=== PATIENT | female | born 1940 | race Caucasian/White ===

== ENCOUNTER 2022-06-05 10:23 | Inpatient (IN) | payer MEDICARE, OTHER ==
[2022-06-05 11:21] LABS: #Eosinphils 0.3 thou/uL (0.0-0.7); #Lymphocytes 1.1 thou/uL (1.20-3.40); #Monocytes 0.8 thou/uL (0.11-0.59); #Neutrophils 5.4 thou/uL (1.40-6.50); %Basophils 0.5 % (0.0-1.0); %Eosinophils 3.7 % (0.0-10.0); %Lymphocytes 14.5 % (21.0-51.0); %Neutrophils 71.4 % (42.0-75.0); Hemoglobin 10.9 g/dL (12.0-16.0); Mean Corpuscular HGB CONC 32.3 g/dL (32.0-36.0); Mean Corpuscular Hemoglobin 29.4 pg (27.0-31.0); Mean Corpuscular Volume 90.9 fL (78.0-98.0); Mean Platelet Volume 8.5 fL (7.4-10.4); Platelet Count 209 thou/uL (130-400); RBC Distribution Width 13.9 % (11.5-14.5); Red Blood Cell (RBC) Count 3.69 mill/uL (4.20-5.40); White Blood Cell (WBC) Count 7.6 thou/uL (4.8-10.8)
[2022-06-05 11:43] LABS: ALT (SGPT) 41 U/L (8-55); AST (SGOT) 42 U/L (5-34); Albumin 4.3 g/dL (3.4-4.8); Alkaline Phosphatase 96 U/L (40-110); Anion Gap 15 mmol/L (10-20); BUN (Urea Nitrogen) 25 mg/dL (9.8-20.1); Bilirubin, Total 0.7 mg/dL (0.2-1.2); Calc. Creatinine Clearance 0 mL/min (70-130); Calcium 9.4 mg/dL (7.8-10.44); Carbon Dioxide 26 mmol/L (23-31); Chloride 101 mmol/L (98-107); Estimated GFR 59; Globulin 2.3 g/dL (2.4-3.5); Glucose 117 mg/dL (83-110); Potassium 4.5 mmol/L (3.5-5.1); Protein, Total 6.6 g/dL (5.8-8.1); Sodium 137 mmol/L (136-145)
[2022-06-05 12:05] LABS: CKMB 2.4 ng/mL (0-6.6)
[2022-06-05] MEDS ORDERED: Dexamethasone 4 mg/ml Vial ONE ×2 (12:16→12:17)
[2022-06-05] MEDS ORDERED: Magnesium 2 GM/50 ML BAG (IN WATER) ONE (12:17)
[2022-06-05] MEDS ORDERED: Nitroglycerin 2% Ointment 1 INCH/1 GM Packet ONE (12:17)
[2022-06-05] MEDS ORDERED: Aspirin Chewable 81 MG TAB ONE (12:17)
[2022-06-05] MEDS ORDERED: Iopamidol-370 76% 500 ML 1 ML ONE (12:56)
[2022-06-05] MEDS ORDERED: Acetaminophen 325 MG TAB PO PRN (12:59)
[2022-06-05] MEDS ORDERED: Albuterol Sulfate 1.25 MG/3 ML NEB EZPAP PRN (13:22)
[2022-06-05] MEDS ORDERED: Furosemide 20 MG/2 ML VIAL ONE (13:34)
[2022-06-05] MEDS ORDERED: diphenhydrAMINE 50 MG/ML VIAL ONE (13:39)
[2022-06-05] MEDS ORDERED: Furosemide 20 MG/2 ML VIAL SLOW IVP SCH (13:45)
[2022-06-05 13:49] LABS: CK (CPK) 64 U/L (29-168); Lipase 32 U/L (8-78)
[2022-06-05] MEDS ORDERED: Lorazepam (BATCHED) 2 MG/ML SYR ONE (13:58)
[2022-06-05 14:07] LABS: Analyzer IN Cardio ER; Base Excess (BEa) -4.9 mEq/L (-2.0 to +3.0); Calcium, Ionized (arterial) 1.16 mmol/L (1.12-1.30); Hemoglobin (Hb) 11.9 g/dL (12.0-16.0); O2 Tension (PaO2), arterial 98.8 mmHg (> 60.0); Potassium - ABG Lab 4.69 mmol/L (3.70-5.30); pH, Arterial 7.32 (7.35-7.45)
[2022-06-05 14:37] LABS: Troponin I 0.041 ng/mL (< 0.028)
[2022-06-05 14:42] LABS: SARS-CoV-2 NAA Rapid Test Not Detected (NotDetected)
[2022-06-05 14:47] LABS: Puncture Site RBA
[2022-06-05] MEDS: Furosemide 40 MG/4 ML VIAL SLOW IVP SCH (14:48)
[2022-06-05 18:45] LABS: CKMB 2.4 ng/mL (0-6.6)
[2022-06-05] MEDS: Mometasone 100 MCG/PUFF (1 INHALER) INH SCH (19:51)
[2022-06-05 20:47] VITALS: BMI 22.3
[2022-06-05] MEDS: Famotidine 20 MG TAB PO SCH (22:06)
[2022-06-05] MEDS: Atorvastatin Calcium 40 MG TAB PO SCH (22:06)
[2022-06-06] MEDS ORDERED: Nitroglycerin 2% Ointment 1 INCH/1 GM Packet ONE (03:08)
[2022-06-06] MEDS ORDERED: Nitroglycerin 0.4 MG TAB (25 Tab Bottle) ONE (03:12)
[2022-06-06] MEDS: Nitroglycerin 0.4 MG TAB (25 Tab Bottle) SL PRN ×7 (03:40→15:32)
[2022-06-06 03:49] LABS: #Lymphocytes 1.1 thou/uL (1.20-3.40); #Monocytes 0.8 thou/uL (0.11-0.59); #Neutrophils 7.5 thou/uL (1.40-6.50); %Eosinophils 0.2 % (0.0-10.0); %Lymphocytes 11.8 % (21.0-51.0); %Monocytes 8.4 % (0.0-10.0); %Neutrophils 79.7 % (42.0-75.0); Hemoglobin 10.7 g/dL (12.0-16.0); Mean Corpuscular HGB CONC 33.1 g/dL (32.0-36.0); Mean Corpuscular Volume 90.8 fL (78.0-98.0); Mean Platelet Volume 8.4 fL (7.4-10.4); Platelet Count 216 thou/uL (130-400); RBC Distribution Width 13.8 % (11.5-14.5); Red Blood Cell (RBC) Count 3.56 mill/uL (4.20-5.40); White Blood Cell (WBC) Count 9.4 thou/uL (4.8-10.8)
[2022-06-06 04:06] LABS: Anion Gap 18 mmol/L (10-20); BUN (Urea Nitrogen) 24 mg/dL (9.8-20.1); Calc. Creatinine Clearance 44 mL/min (70-130); Calcium 9.1 mg/dL (7.8-10.44); Carbon Dioxide 22 mmol/L (23-31); Chloride 100 mmol/L (98-107); Estimated GFR 61; Glucose 130 mg/dL (83-110); Potassium 4.2 mmol/L (3.5-5.1); Sodium 136 mmol/L (136-145)
[2022-06-06 04:12] LABS: Troponin I 0.036 ng/mL (< 0.028)
[2022-06-06] MEDS: Furosemide 40 MG/4 ML VIAL SLOW IVP SCH ×2 (06:18→13:50)
[2022-06-06] MEDS: Levothyroxine Sodium 75 MCG TAB PO SCH (06:18)
[2022-06-06] MEDS ORDERED: Ondansetron PF 4 MG/2 ML Vial IVP PRN (08:22)
[2022-06-06] MEDS ORDERED: Lisinopril/Hydrochlorothiazide 20/25 mg Tablet PO SCH (09:00)
[2022-06-06] MEDS: Mometasone 100 MCG/PUFF (1 INHALER) INH SCH ×2 (09:14→22:08)
[2022-06-06] MEDS: Calcium Carbonate 500 MG ChewTAB PO PRN (09:30)
[2022-06-06] MEDS: Aspirin Chewable 81 MG TAB PO SCH (09:30)
[2022-06-06] MEDS: Enoxaparin Sodium 40 MG/0.4 ML SYRINGE SC SCH (09:30)
[2022-06-06] MEDS: Famotidine 20 MG TAB PO SCH ×2 (09:50→19:39)
[2022-06-06] MEDS: Azithromycin 500 MG in Sodium Chloride 0.9% 250 ML 250 ML IVPB SCH (15:28)
[2022-06-06] MEDS: predniSONE 20 MG TAB PO SCH (15:28)
[2022-06-06] MEDS ORDERED: Metoprolol Tartrate 5 MG/5 ML VIAL ONE (15:35)
[2022-06-06] MEDS: Morphine 2 MG/ML VIAL SLOW IVP PRN ×2 (15:40→19:42)
[2022-06-06] MEDS: Atorvastatin Calcium 40 MG TAB PO SCH (19:38)
[2022-06-06] MEDS: Metoprolol Tartrate 50 MG TAB PO SCH (19:39)
[2022-06-06] MEDS: Nitroglycerin 2% Ointment 1 INCH/1 GM Packet TOP SCH (19:41)
[2022-06-07 03:42] LABS: #Lymphocytes 0.5 thou/uL (1.20-3.40); #Monocytes 0.6 thou/uL (0.11-0.59); #Neutrophils 6.5 thou/uL (1.40-6.50); %Basophils 0.2 % (0.0-1.0); %Eosinophils 0.1 % (0.0-10.0); %Lymphocytes 6.9 % (21.0-51.0); %Monocytes 8.3 % (0.0-10.0); %Neutrophils 84.4 % (42.0-75.0); Hemoglobin 9.5 g/dL (12.0-16.0); Mean Corpuscular HGB CONC 33.2 g/dL (32.0-36.0); Mean Corpuscular Hemoglobin 30.3 pg (27.0-31.0); Mean Corpuscular Volume 91.2 fL (78.0-98.0); Mean Platelet Volume 8.4 fL (7.4-10.4); Platelet Count 191 thou/uL (130-400); RBC Distribution Width 13.9 % (11.5-14.5); Red Blood Cell (RBC) Count 3.13 mill/uL (4.20-5.40); White Blood Cell (WBC) Count 7.6 thou/uL (4.8-10.8)
[2022-06-07 04:05] LABS: Anion Gap 13 mmol/L (10-20); BUN (Urea Nitrogen) 38 mg/dL (9.8-20.1); Calc. Creatinine Clearance 35 mL/min (70-130); Calcium 9.3 mg/dL (7.8-10.44); Carbon Dioxide 28 mmol/L (23-31); Chloride 98 mmol/L (98-107); Estimated GFR 47; Glucose 145 mg/dL (83-110); Potassium 4.9 mmol/L (3.5-5.1); Sodium 134 mmol/L (136-145)
[2022-06-07] MEDS: Levothyroxine Sodium 75 MCG TAB PO SCH (05:15)
[2022-06-07] MEDS: Nitroglycerin 2% Ointment 1 INCH/1 GM Packet TOP SCH ×3 (05:15→20:44)
[2022-06-07] MEDS: Furosemide 40 MG/4 ML VIAL SLOW IVP SCH ×2 (05:15→13:32)
[2022-06-07] MEDS: Mometasone 100 MCG/PUFF (1 INHALER) INH SCH ×2 (07:28→18:59)
[2022-06-07 07:31] LABS: Actual Bicarbonate (HCO3a) 30.2 mEq/L (22-28); Base Excess (BEa) 5.3 mEq/L (-2.0 to +3.0); CO2 Tension 46.1 mmHg (35.0-45.0); Calcium, Ionized (arterial) 1.18 mmol/L (1.12-1.30); Carboxyhemoglobin (COHb) 0.3 gm% (0.0-3.0); Hemoglobin (Hb) 10.6 g/dL (12.0-16.0); Potassium - ABG Lab 4.24 mmol/L (3.70-5.30); pH, Arterial 7.43 (7.35-7.45)
[2022-06-07 07:34] LABS: ALV-art Gradient 120.055 mmHg (0-20); Puncture Site RBA
[2022-06-07] MEDS: Nitroglycerin 0.4 MG TAB (25 Tab Bottle) SL PRN ×2 (08:42→19:22)
[2022-06-07] MEDS: Calcium Carbonate 500 MG ChewTAB PO PRN (08:42)
[2022-06-07] MEDS: Metoprolol Tartrate 50 MG TAB PO SCH ×2 (08:43→20:43)
[2022-06-07] MEDS: Aspirin Chewable 81 MG TAB PO SCH (08:43)
[2022-06-07] MEDS: Enoxaparin Sodium 40 MG/0.4 ML SYRINGE SC SCH (08:44)
[2022-06-07] MEDS: Morphine 2 MG/ML VIAL SLOW IVP PRN ×3 (08:51→19:22)
[2022-06-07] MEDS: Azithromycin 500 MG in Sodium Chloride 0.9% 250 ML 250 ML IVPB SCH (14:24)
[2022-06-07] MEDS: predniSONE 20 MG TAB PO SCH (14:24)
[2022-06-07] MEDS ORDERED: Aquaphor 10 GM TUBE TOP PRN (14:46)
[2022-06-07] MEDS: Atorvastatin Calcium 40 MG TAB PO SCH (20:43)
[2022-06-07] MEDS: Famotidine 20 MG TAB PO SCH (20:43)
[2022-06-08 04:22] LABS: #Lymphocytes 0.7 thou/uL (1.20-3.40); #Monocytes 0.8 thou/uL (0.11-0.59); #Neutrophils 7.1 thou/uL (1.40-6.50); %Eosinophils 0.2 % (0.0-10.0); %Lymphocytes 8.5 % (21.0-51.0); %Monocytes 9.4 % (0.0-10.0); %Neutrophils 81.9 % (42.0-75.0); Hemoglobin 9.6 g/dL (12.0-16.0); Mean Corpuscular HGB CONC 33.1 g/dL (32.0-36.0); Mean Corpuscular Hemoglobin 30.3 pg (27.0-31.0); Mean Corpuscular Volume 91.4 fL (78.0-98.0); Mean Platelet Volume 8.7 fL (7.4-10.4); Platelet Count 196 thou/uL (130-400); RBC Distribution Width 13.8 % (11.5-14.5); Red Blood Cell (RBC) Count 3.16 mill/uL (4.20-5.40); White Blood Cell (WBC) Count 8.6 thou/uL (4.8-10.8)
[2022-06-08] MEDS: Levothyroxine Sodium 75 MCG TAB PO SCH (05:09)
[2022-06-08] MEDS: Nitroglycerin 2% Ointment 1 INCH/1 GM Packet TOP SCH ×2 (05:13→15:01)
[2022-06-08 05:16] LABS: Anion Gap 12 mmol/L (10-20); BUN (Urea Nitrogen) 43 mg/dL (9.8-20.1); Calc. Creatinine Clearance 39 mL/min (70-130); Calcium 8.8 mg/dL (7.8-10.44); Carbon Dioxide 30 mmol/L (23-31); Chloride 96 mmol/L (98-107); Estimated GFR 53; Glucose 166 mg/dL (83-110); Potassium 4.5 mmol/L (3.5-5.1); Sodium 133 mmol/L (136-145)
[2022-06-08] MEDS: Mometasone 100 MCG/PUFF (1 INHALER) INH SCH ×2 (08:02→18:32)
[2022-06-08] MEDS: Aspirin Chewable 81 MG TAB PO SCH (09:47)
[2022-06-08] MEDS: Metoprolol Tartrate 50 MG TAB PO SCH ×2 (09:47→21:41)
[2022-06-08] MEDS: Furosemide 20 MG TAB PO SCH ×2 (09:47→15:01)
[2022-06-08] MEDS: Enoxaparin Sodium 40 MG/0.4 ML SYRINGE SC SCH (09:53)
[2022-06-08] MEDS ORDERED: Polyethylene Glycol 3350 17 GM Packet PO SCH (10:15)
[2022-06-08] MEDS: Azithromycin 500 MG in Sodium Chloride 0.9% 250 ML 250 ML IVPB SCH (15:04)
[2022-06-08] MEDS ORDERED: Bisacodyl 10 MG SUPP PR PRN (15:25)
[2022-06-08] MEDS ORDERED: Cepastat Lozenges 1 LOZ PO PRN (15:25)
[2022-06-08] MEDS ORDERED: Bisacodyl 5 MG TAB PO PRN (15:25)
[2022-06-08] MEDS: predniSONE 20 MG TAB PO SCH (15:25)
[2022-06-08] MEDS ORDERED: Loratadine 10 MG TAB PO PRN (15:25)
[2022-06-08] MEDS ORDERED: Benzonatate 100 MG CAP PO PRN (15:25)
[2022-06-08] MEDS ORDERED: Artificial Tear Sol 15 ML BOT EA EYE PRN (15:25)
[2022-06-08] MEDS ORDERED: Moisturizing Cream (Eucerin) 113 GM JAR TOP PRN (15:25)
[2022-06-08] MEDS ORDERED: Sodium Chloride 0.65% Nasal 44 ML BOT EA NARE PRN (15:25)
[2022-06-08] MEDS: Atorvastatin Calcium 40 MG TAB PO SCH (21:37)
[2022-06-08] MEDS: Famotidine 20 MG TAB PO SCH (21:37)
[2022-06-09] MEDS: Nitroglycerin 2% Ointment 1 INCH/1 GM Packet TOP SCH ×4 (02:31→23:19)
[2022-06-09] MEDS: Mometasone 100 MCG/PUFF (1 INHALER) INH SCH ×2 (06:49→18:20)
[2022-06-09] MEDS: Levothyroxine Sodium 75 MCG TAB PO SCH (06:53)
[2022-06-09] MEDS: Furosemide 20 MG TAB PO SCH ×2 (09:40→13:24)
[2022-06-09] MEDS: Enoxaparin Sodium 40 MG/0.4 ML SYRINGE SC SCH (09:40)
[2022-06-09] MEDS: Aspirin Chewable 81 MG TAB PO SCH (09:40)
[2022-06-09 09:41] LABS: Actual Bicarbonate (HCO3a) 29.7 mEq/L (22-28); Base Excess (BEa) 5.2 mEq/L (-2.0 to +3.0); CO2 Tension 43.4 mmHg (35.0-45.0); Calcium, Ionized (arterial) 1.18 mmol/L (1.12-1.30); Carboxyhemoglobin (COHb) 0.3 gm% (0.0-3.0); Hemoglobin (Hb) 10.8 g/dL (12.0-16.0); O2 Tension (PaO2), arterial 108.6 mmHg (> 60.0); Potassium - ABG Lab 3.68 mmol/L (3.70-5.30); pH, Arterial 7.45 (7.35-7.45)
[2022-06-09] MEDS: Metoprolol Tartrate 50 MG TAB PO SCH ×2 (09:41→19:56)
[2022-06-09 09:42] LABS: Puncture Site LBA
[2022-06-09] MEDS: Polyethylene Glycol 3350 17 GM Packet PO SCH (09:42)
[2022-06-09 11:17] VITALS: BP 173/88
[2022-06-09] MEDS: Azithromycin 500 MG in Sodium Chloride 0.9% 250 ML 250 ML IVPB SCH (16:54)
[2022-06-09] MEDS: predniSONE 20 MG TAB PO SCH (16:55)
[2022-06-09] MEDS: Famotidine 20 MG TAB PO SCH (19:56)
[2022-06-09] MEDS: Atorvastatin Calcium 40 MG TAB PO SCH (19:56)
[2022-06-10] MEDS: Levothyroxine Sodium 75 MCG TAB PO SCH (06:46)
[2022-06-10] MEDS: Nitroglycerin 2% Ointment 1 INCH/1 GM Packet TOP SCH ×4 (06:48→21:51)
[2022-06-10] MEDS: Mometasone 100 MCG/PUFF (1 INHALER) INH SCH ×2 (06:51→18:23)
[2022-06-10] MEDS: Calcium Carbonate 500 MG ChewTAB PO PRN (08:57)
[2022-06-10] MEDS: Metoprolol Tartrate 50 MG TAB PO SCH ×2 (08:57→21:51)
[2022-06-10] MEDS: Aspirin Chewable 81 MG TAB PO SCH (08:57)
[2022-06-10] MEDS: Furosemide 20 MG TAB PO SCH ×2 (08:57→13:11)
[2022-06-10] MEDS: Enoxaparin Sodium 40 MG/0.4 ML SYRINGE SC SCH (08:57)
[2022-06-10] MEDS: Polyethylene Glycol 3350 17 GM Packet PO SCH (08:58)
[2022-06-10] MEDS ORDERED: Potassium Chloride 20 MEQ TAB PO SCH (09:00)
[2022-06-10] MEDS ORDERED: Furosemide 40 MG/4 ML VIAL SLOW IVP SCH (09:00)
[2022-06-10] MEDS ORDERED: Polyethylene Glycol 3350 17 GM Packet PO PRN (13:59)
[2022-06-10] MEDS: Azithromycin 500 MG in Sodium Chloride 0.9% 250 ML 250 ML IVPB SCH (15:05)
[2022-06-10] MEDS: predniSONE 20 MG TAB PO SCH (15:16)
[2022-06-10] MEDS: Atorvastatin Calcium 40 MG TAB PO SCH (21:51)
[2022-06-11 04:35] LABS: #Lymphocytes 0.9 thou/uL (1.20-3.40); #Monocytes 0.8 thou/uL (0.11-0.59); #Neutrophils 6.8 thou/uL (1.40-6.50); %Basophils 0.1 % (0.0-1.0); %Eosinophils 0.2 % (0.0-10.0); %Lymphocytes 10.3 % (21.0-51.0); %Monocytes 9.4 % (0.0-10.0); %Neutrophils 80.1 % (42.0-75.0); Hemoglobin 9.8 g/dL (12.0-16.0); Mean Corpuscular HGB CONC 32.8 g/dL (32.0-36.0); Mean Corpuscular Hemoglobin 29.8 pg (27.0-31.0); Mean Corpuscular Volume 90.8 fL (78.0-98.0); Mean Platelet Volume 8.6 fL (7.4-10.4); Platelet Count 202 thou/uL (130-400); RBC Distribution Width 13.7 % (11.5-14.5); Red Blood Cell (RBC) Count 3.28 mill/uL (4.20-5.40); White Blood Cell (WBC) Count 8.5 thou/uL (4.8-10.8)
[2022-06-11 04:57] LABS: ALT (SGPT) 20 U/L (8-55); AST (SGOT) 15 U/L (5-34); Albumin 3.4 g/dL (3.4-4.8); Alkaline Phosphatase 79 U/L (40-110); Anion Gap 12 mmol/L (10-20); BUN (Urea Nitrogen) 42 mg/dL (9.8-20.1); Bilirubin, Total 0.7 mg/dL (0.2-1.2); Calc. Creatinine Clearance 43 mL/min (70-130); Calcium 9.4 mg/dL (7.8-10.44); Carbon Dioxide 31 mmol/L (23-31); Chloride 96 mmol/L (98-107); Estimated GFR 62; Globulin 2.2 g/dL (2.4-3.5); Glucose 221 mg/dL (83-110); Potassium 4.4 mmol/L (3.5-5.1); Protein, Total 5.6 g/dL (5.8-8.1); Sodium 135 mmol/L (136-145)
[2022-06-11] MEDS: Levothyroxine Sodium 75 MCG TAB PO SCH (06:05)
[2022-06-11] MEDS: Nitroglycerin 2% Ointment 1 INCH/1 GM Packet TOP SCH (06:06)
[2022-06-11] MEDS: Mometasone 100 MCG/PUFF (1 INHALER) INH SCH (07:03)
[2022-06-11] MEDS ORDERED: predniSONE 20 MG TAB PO SCH (08:00)
[2022-06-11] MEDS: Aspirin Chewable 81 MG TAB PO SCH (08:28)
[2022-06-11] MEDS: Enoxaparin Sodium 40 MG/0.4 ML SYRINGE SC SCH (08:28)
[2022-06-11] MEDS: Furosemide 20 MG TAB PO SCH (08:28)
[2022-06-11] MEDS: Metoprolol Tartrate 50 MG TAB PO SCH (08:29)
[2022-06-11 11:38] VITALS: TEMP 98.6
[2022-06-11] MEDS ORDERED: metFORMIN XR 500 MG TAB PO SCH (21:00)
== END 2022-06-11 15:47 | disposition hospice, home (50) | DRG 291 ==
LOC: ERS 10:23 → ERHOLD 12:40 → IMCU/EMU 19:38 → OBSVTOIN 20:50
PROVIDERS: ADMIT Family Medicine; ATTEND Family Medicine
DX: I11.0 Hypertensive heart disease with heart failure (principal); I50.43 Acute on chronic combined systolic (congestive) and diastolic (congestive) heart failure; J96.21 Acute and chronic respiratory failure with hypoxia; J44.1 Chronic obstructive pulmonary disease with (acute) exacerbation; I47.1 Supraventricular tachycardia; Z66 Do not resuscitate; Z20.822 Contact with and (suspected) exposure to COVID-19; E11.9 Type 2 diabetes mellitus without complications; E03.9 Hypothyroidism, unspecified; E78.5 Hyperlipidemia, unspecified; I48.0 Paroxysmal atrial fibrillation; I20.0 Unstable angina; I42.0 Dilated cardiomyopathy; I35.0 Nonrheumatic aortic (valve) stenosis; D64.9 Anemia, unspecified; R91.1 Solitary pulmonary nodule; Z99.81 Dependence on supplemental oxygen; Z95.3 Presence of xenogenic heart valve; Z88.5 Allergy status to narcotic agent; Z90.710 Acquired absence of both cervix and uterus; Z79.890 Hormone replacement therapy; Z79.84 Long term (current) use of oral hypoglycemic drugs; Z79.82 Long term (current) use of aspirin; Z79.899 Other long term (current) drug therapy
CPT/HCPCS: 36415; 36416; 36600; 71045; 71275; 80048; 80053; 82550; 82553; 82805; 83615; 83690; 83735; 83880; 84484; 85025; 93005; 93010; 93306; 93798; 94640; 94660; 94760; 96361; 96374; 96375; G0378; J0456; J1100; J1200; J1650; J1940; J2060; J2270; J2405; J3475; J7050; J7512; J7620; Q9967; U0002